=== PATIENT | female | born 1970 | race Caucasian/White ===

== ENCOUNTER 2017-06-03 00:16 | Emergency (ER) | payer SELFPAY ==
[2017-06-03] MEDS ORDERED: ASPIRIN ONE (00:36)
[2017-06-03 00:46] VITALS: BP 167/86
[2017-06-03] MEDS ORDERED: ASPIRIN PO ONE (00:46)
[2017-06-03 01:17] LABS: Basophils # (Auto) 0.1 K/mm3 (0.0-0.1); Basophils % (Auto) 0.6 % (0.0-1.8); Eosinophils # (Auto) 0.2 K/mm3 (0.0-0.4); Eosinophils % (Auto) 2.5 % (0.0-4.3); Lymphocytes % (Auto) 41.7 % (13.4-35.0); Mean Corpuscular HGB Conc 30 % (30-34); Monocytes # (Auto) 0.6 K/mm3 (0.0-0.8); Monocytes % (Auto) 6.3 % (0.0-7.3); Platelet Count 291 K/mm3 (140-440); Red Blood Count 5.58 M/mm3 (3.65-5.03)
[2017-06-03 01:35] LABS: BUN/Creatinine Ratio 23; Blood Urea Nitrogen 14 mg/dL (7-17); Calcium 8.7 mg/dL (8.4-10.2); Hemolysis Index 2
[2017-06-03 01:41] LABS: Hematocrit 34.5 % (30.3-42.9); Hemoglobin 10.3 gm/dl (10.1-14.3); Mean Corpuscular Hemoglobin 19 pg (28-32); Mean Corpuscular Volume 62 fl (79-97); Red Cell Distribution Width 20.8 % (13.2-15.2)
== END 2017-06-03 00:50 | disposition left against medical advice (07) ==
LOC: ED 00:16
DX: R07.9 Chest pain, unspecified (principal); Z53.21 Procedure and treatment not carried out due to patient leaving prior to being seen by health care provider
CPT/HCPCS: 36415; 80048; 84484; 84703; 85025; 93005; 93010